=== PATIENT | male | born 1925 | race Asian ===

== ENCOUNTER 2016-09-10 09:59 | Inpatient (IN) | payer MEDICARE, BC, OTHER ==
[~2016-09-10] VITALS: Ht 170.2 cm; Wt 58.0 kg
[2016-09-10] MEDS ORDERED: SODIUM CHLORIDE 0.9% 1L BAG IV* STA (10:18)
[2016-09-10 10:52] LABS: ADD SCAN DIFF NO
[2016-09-10 11:03] LABS: ABNORMAL IP MESSAGE 1; HEMATOCRIT 28.9 % (42.0-52.0); HEMOGLOBIN 8.7 g/dl (14.0-18.0); MEAN CORPUSCULAR HEMOGLOBIN 24.3 pg (29.0-33.0); MEAN CORPUSCULAR HGB CONC 30.1 g/dl (32.0-37.0); MEAN CORPUSCULAR VOLUME 80.7 fl (82.0-101.0); MEAN PLATELET VOLUME 10.4 fl (7.4-10.4); PLATELET COUNT 336 10^3/UL (140-415); RED BLOOD COUNT 3.58 10^6/ul (4.70-6.10); RED CELL DISTRIBUTION WIDTH 21.3 % (11.5-14.5); WHITE BLOOD COUNT 6.4 10^3/ul (4.8-10.8)
--- NOTE | 2016-09-10 11:08 | RADRPT ---
PROCEDURE: Chest x-ray CLINICAL INDICATION: Shortness of breath TECHNIQUE: Chest single view COMPARISON: 04/16/2009 FINDINGS: The heart is normal in size. The pulmonary vessels are normal in caliber. There is stable atherosc lerotic aortic calcification. There is interval development of moderate bilateral pleural effusions with associated lower lobe compressive atelectasis and volume loss. A 8 mm right upper lung nodule is identified. The bones diffusely osteopenic IMPRESSION: 1. Interval development of moderate size bilateral pleural effusions with associated lower lobe com pressive atelectasis and volume loss. 2. 8 mm right upper lung nodule RPTAT: HH .Dameon Mcclain MD, MD Date Time Electronically viewed and signed by .Dameon Mcclain MD, on 09/10/2016 11:07 .W/
[2016-09-10] MEDS ORDERED: TIOT18CA INHALATION (11:09)
[2016-09-10] MEDS ORDERED: MULT-761 PO (11:10)
[2016-09-10 11:27] LABS: INR 1.28; PROTIME 16.1 Sec (12.2-14.2); PT RATIO 1.3
[2016-09-10 11:36] LABS: ADD UMIC YES; URINE BILIRUBIN (Dip) NEGATIVE (NEGATIVE); URINE BLOOD (Dip) TRACE (NEGATIVE); URINE COLOR LT. YELLOW (YELLOW); URINE GLUCOSE (Dip) NEGATIVE (NEGATIVE); URINE KETONES (Dip) NEGATIVE (NEGATIVE); URINE LEUKOCYTE ESTERASE (Dip) NEGATIVE (NEGATIVE); URINE NITRITE (Dip) NEGATIVE (NEGATIVE); URINE TOTAL PROTEIN (Dip) NEGATIVE (NEGATIVE); URINE UROBILINOGEN (Dip) 0.2 E.U./dL (0.1-1.0)
[2016-09-10 11:57] LABS: BACTERIA,URINE FEW
[2016-09-10 12:12] LABS: ALBUMIN 2.6 g/dl (3.3-4.9); CHLORIDE 107 mmol/L (97-110)
[2016-09-10 12:13] LABS: POTASSIUM 5.2 mmol/L (3.5-5.1); SODIUM 144 mmol/L (135-144)
[2016-09-10 12:15] LABS: ALBUMIN/GLOBULIN RATIO 0.55; ANION GAP 19 (8-16); BILIRUBIN,INDIRECT 0.6 mg/dl (0-1.1); BILIRUBIN,TOTAL 0.6 mg/dl (0.2-1.3); CARBON DIOXIDE 23 mmol/L (21-31); CREATININE 2.09 mg/dl (0.61-1.24); TOTAL PROTEIN 7.3 g/dl (6.1-8.1)
[2016-09-10 12:16] LABS: ALANINE AMINOTRANSFERASE 42 IU/L (13-69); ALKALINE PHOSPHATASE 178 IU/L (42-121); ASPARTATE AMINO TRANSFERASE 86 IU/L (15-46); BLOOD UREA NITROGEN 91 mg/dl (7-20); CALCIUM 8.8 mg/dl (8.4-10.2)
[2016-09-10 12:18] LABS: GLUCOSE 47 mg/dl (70-220)
[2016-09-10 12:28] LABS: TROPONIN-I < 0.012 ng/ml (0.00-0.12)
[2016-09-10] MEDS ORDERED: DEXTROSE 50% 50 ML SYRINGE IV ONE (12:30)
[2016-09-10] MEDS ORDERED: SOD CHLORIDE 0.9% 1,000 ML IV SCH (12:39)
--- NOTE | 2016-09-10 12:45 | ERA ---
ER Documentation Chief Complaint Date/Time DATE: 09/10/16 TIME: 12:40 Chief Complaint pt bib family with c/o decresed intake, diarrhea, and sob with hx COPD HPI This is a 89-year-old male who presents to the emergency room for evaluation of generalized weakness, decreased feeding over the past 3 days, and mild shortness of breath. This patient does have a history of metastatic colon carcinoma. The patient is unable to give a history secondary to his clinical condition, and language barrier. According to his son who was at bedside this patient has had decreased activity over the past 2 days. He does have a history of hospitalization in the past for pneumonia which caused similar symptoms. ROS All systems reviewed and are negative except as per history of present illness. Medications Home Meds Reported Medications Multivitamin (MULTI VITAMIN DAILY) 1 Each Tablet, 1 TAB PO DAILY, TAB 09/10/16 Tiotropium [place]* (Spiriva*) 18 Mcg Cap.w.dev, 1 CAP INHALATION DAILY Y for SHORTNESS OF BREATH, #30 CAP 09/10/16 Allergies Allergies: Coded Allergies: No Known Drug Allergy (Verified Allergy, Intermediate, 09/10/16) Physical Exam Vitals Vital Signs Date Time Temp Pulse Resp B/P Pulse Ox O2 Delivery O2 Flow Rate FiO2 09/10/16 12:14 Nasal Cannula 2 09/10/16 11:23 Simple Mask 5 09/10/16 10:51 94.9 68 22 134/67 100 09/10/16 10:00 96.9 74 28 115/72 96 Physical Exam INITIAL VITAL SIGNS: Reviewed by me GENERAL: The patient is cachectic appearing gentleman, mild respiratory distress, temporal wasting HEENT: Dry mucous membranes pupils equal, round, and reactive to light. EOMI. There is no scleral icterus. NECK: C-spine is soft and supple, there is no meningismus. There is no cervical lymphadenopathy. LUNGS: Decreased breath sounds with coarse rhonchi auscultated in the upper and lower lobes HEART: Regular rate and rhythm, no murmurs, clicks, rubs or gallops. ABDOMEN: Soft, non-tender, non-distended. There are bowel sounds in all four quadrants. No rebound or guarding. EXTREMITIES: There is no peripheral cyanosis or edema. No focal swelling or erythema. NEUROLOGICAL: The patient moves all four extremities with 5/5 strength. Cranial nerves II - XII are intact. Normal gait. Alert and oriented SKIN: Pale appearing, there is no apparent rash or petechiae. Rectal exam: Brown stool, heme positive HEME/LYMPHATIC: There is no evidence of excessive bruising or lymphedema. PSYCHIATRIC: The patient does not appear anxious or depressed. Result Diagram: 09/10/16 1042 09/10/16 1042 Results 24 hrs Laboratory Tests Test 09/10/16 10:30 09/10/16 10:42 09/10/16 11:06 Lactic Acid Level 1.5mmol/L White Blood Count 6.410^3/ul Red Blood Count 3.5810^6/ul Hemoglobin 8.7g/dl Hematocrit 28.9% Mean Corpuscular Volume 80.7fl Mean Corpuscular Hemoglobin 24.3pg Mean Corpuscular Hemoglobin Concent 30.1g/dl Red Cell Distribution Width 21.3% Platelet Count 08945^3/UL Mean Platelet Volume 10.4fl Neutrophils % % Eosinophils % % Neutrophils # 10^3/ul Eosinophils # 10^3/ul Prothrombin Time 16.1Sec Prothrombin Time Ratio 1.3 INR International Normalized Ratio 1.28 Activated Partial Thromboplast Time 33.0Sec Sodium Level 144mmol/L Potassium Level 5.2mmol/L Chloride Level 107mmol/L Carbon Dioxide Level 23mmol/L Anion Gap 19 Blood Urea Nitrogen 91mg/dl Creatinine 2.09mg/dl Glucose Level 47mg/dl Calcium Level 8.8mg/dl Total Bilirubin 0.6mg/dl Direct Bilirubin 0.00mg/dl Indirect Bilirubin 0.6mg/dl Aspartate Amino Transf (AST/SGOT) 86IU/L Alanine Aminotransferase (ALT/SGPT) 42IU/L Alkaline Phosphatase 178IU/L Troponin I < 0.012ng/ml Total Protein 7.3g/dl Albumin 2.6g/dl Globulin 4.70g/dl Albumin/Globulin Ratio 0.55 Urine Color LT. YELLOW Urine Clarity CLEAR Urine pH 5.0 Urine Specific [place] 1.020 Urine Ketones NEGATIVE Urine Nitrite NEGATIVE Urine Bilirubin NEGATIVE Urine Urobilinogen 0.2 E.U./dL Urine Leukocyte Esterase NEGATIVE Urine Microscopic RBC 2-5/HPF Urine Microscopic WBC NONE SEEN/HPF Urine Epithelial Cells FEW Urine Amorphous Urates MANY Urine Bacteria FEW Urine Hemoglobin TRACE Urine Glucose NEGATIVE% Urine Total Protein NEGATIVE Current Medications Medications (Trade) Dose Ordered Sig/Abelardo Route PRN Reason Start Time Stop Time Status Last Admin Dose Admin Sodium Chloride (NS) 1,640 ml BOLUS OVER 2 HOURS STAT IV* 09/10/16 10:18 09/10/16 10:19 DC 09/10/16 10:51 Dextrose (D50w Syringe) 50 ml ONCE ONCE IV 09/10/16 12:30 09/10/16 12:31 DC 09/10/16 12:32 Procedures/MDM EKG: Rate/Rhythm: Right bundle branch block QRS, ST, T-waves: [No changes consistent w/ acute ischemia] Impression: [No evidence of ischemia or arrhythmia] Chest X-ray 1V Interpreted by me: Soft Tissue: Bilateral pleural effusions Bones: No acute abnormalities Mediastinum/Cardiac Silhouette/Lungs: [No acute abnormalities] This 89-year-old male presents to the emergency room for evaluation of generalized fatigue. When I evaluated this patient I did note that he was an elderly gentleman in who was pale, cachectic appearing, and had mild respiratory distress. This patient's pulse oxygen level on room air was 86%. He does have a history of COPD, however given his clinical appearance I did obtain a septic workup. This patient was found to have bilateral pleural effusions, and a low hemoglobin. His previous hemoglobin was greater than 14. I did a rectal exam and he does have brown stool which is heme positive on my examination. This patient's lab work also shows acute renal failure, and hypoglycemia with a blood sugar of 47. This patient was given 1 amp of dextrose in the emergency room. He was given 1 L of fluids, and will be transfused 1 unit of packed red blood cells. I have contacted his primary care physician, and spoke to Dr. Alexandre who is covering. This patient will be placing at this time on a telemetry floor. This patient was placed on 2 L nasal cannula and states that he is feeling slightly better. Critical Care: Excluding all billable procedures Time: 38 minutes Treatments/Evaluations: Close monitoring and treatment of unstable vital signs, cardiorespiratory, and neurologic status, while maintaining tight balance of fluid, respiratory, and cardiac interventions. Departure Diagnosis: Primary Impression: Acute and chronic respiratory failure with hypoxia Additional Impressions: GI bleed Bilateral pleural effusion Hypoglycemia Acute renal failure Microcytic anemia Hypoalbuminemia Acute prerenal azotemia Condition: Serious YURIY WOOD DO Sep 10, 2016 12:45
[2016-09-10] MEDS ORDERED: ACETAMINOPHEN 325 MG TAB PO PRN ×2 (13:00→23:30)
[2016-09-10] MEDS ORDERED: ONDANSETRON 4 MG INJ IV PRN (13:00)
[2016-09-10] MEDS ORDERED: SOD CHLORIDE 0.9% 250 ML IV ONE (13:04)
[2016-09-10 13:22] LABS: NEUTROPHIL # 5.2 10^3/ul (1.6-7.5)
[2016-09-10 13:33] LABS: Allen Test ACCEPTAB; Arterial COHb 0.8 % (0.0-3.0); Arterial Fraction of Oxyhgb 98.3 % (93.0-99.0); Arterial HCO3 24.2 mmol/L (22.0-26.0); Arterial MetHb 0.5 % (0.0-1.5); Arterial Total Hemglobin 9.1 g/dl (12.0-18.0); MODE MASK - SIMPLE
[2016-09-10 17:45] VITALS: TEMP 97.7
[2016-09-10 20:00] VITALS: BP 137/61; RESP 16
[2016-09-10 20:03] VITALS: PULSE 75
[2016-09-10 21:25] VITALS: Ht 170.2 cm; Wt 58.0 kg
[2016-09-10] MEDS ORDERED: MAGNESIUM HYDROXIDE 30ML CUP PO PRN (23:30)
[2016-09-10] MEDS ORDERED: ZOLPIDEM 5 MG TAB PO PRN (23:30)
[2016-09-11] VITALS (12 sets, daily range): BP systolic 95–152; BP diastolic 50–79; PULSE 68–90; RESP 16–20
--- NOTE | 2016-09-11 06:02 | PN ---
DATE: SUBJECTIVE: The patient is unresponsive, but he is awake. He appears extremely emaciated. His son states that for the past 4 days he has not been eating, seemed to have some diarrhea and was extrem clari weak. The patient has a history of carcinoma of the colon and was extremely anemic upon admissi on. He has already received 1 unit of blood, so I gave him another unit of blood and called in a tx stroenterologist for consultation. PHYSICAL EXAMINATION: CHEST: Clear to A and P. HEART: Normal sinus rhythm with occasional extrasystole. ABDOMEN: Liver, kidneys, spleen are not palpable. Bowel sounds are normal. There are no intraabdo daniela masses or bruits present. EXTREMITIES: No ankle edema. VITAL SIGNS: The patient is afebrile, blood pressure is 137/61, pulse is 75 per minute, respiration s 28 per minute. LABORATORY DATA: White blood cell count 6,400, hemoglobin 8.7 grams percent, hematocrit 28.9%, plat elet count was normal. Arterial blood gas: pH 7.263, pCO2 54.7, pO2 250.9, base excess -3.0, FIO2 4 0. INR 1.28. Electrolytes: Sodium 144, potassium 5.2, chloride 107, carbon dioxide 23, BUN 91, cre atinine 2.09. Glucose is 47, calcium is 8.8, AST is elevated at 86, alkaline phosphatase is elevate d at 178. Troponin I level is normal at less than 0.012. Albumin is low at 2.6, globulin is high a t 4.7, albumin globulin ratio is abnormal at 0.55. Lactic acid is 0.9. Urine is normal. IMAGING: Chest x-ray shows interval development of moderate sized bilateral pleural effusions, with associated lower lobe compressive atelectasis and volume loss, an 8- mm right upper lung nodule. EK G reveals normal sinus rhythm with a right bundle branch block. Gastroenterology to see patient in consultation. Dictated By: DIAMOND STUART/MAYCO Conf#: [id number] DID#: [id number]
[2016-09-11] MEDS ORDERED: DEXTROSE 50% 50 ML SYRINGE ONE (06:27)
[2016-09-11] MEDS ORDERED: GLUCAGON 1 MG INJ IM PRN (06:30)
[2016-09-11] MEDS ORDERED: GLUCOSE GEL 15 GRAM TUBE PO PRN ×2 (06:30)
[2016-09-11] MEDS ORDERED: DEXTROSE 50% 50 ML SYRINGE IV PRN ×2 (06:30)
[2016-09-11] MEDS ORDERED: GLUCOSE GEL 15 GRAM TUBE BUCCAL PRN (06:30)
[2016-09-11] MEDS ORDERED: BARIUM SULF 2% 450 ML BTL (BERRY SMOOTHIE) PO ONE (08:30)
[2016-09-11 08:59] LABS: ADD SCAN DIFF NO
[2016-09-11] MEDS ORDERED: FUROSEMIDE 20 MG INJ IV SCH (09:00)
[2016-09-11 09:02] LABS: ABNORMAL IP MESSAGE 1; HEMATOCRIT 32.6 % (42.0-52.0); HEMOGLOBIN 10.1 g/dl (14.0-18.0); MEAN CORPUSCULAR HEMOGLOBIN 25.9 pg (29.0-33.0); MEAN CORPUSCULAR VOLUME 83.6 fl (82.0-101.0); MEAN PLATELET VOLUME 10.2 fl (7.4-10.4); PLATELET COUNT 279 10^3/UL (140-415); WHITE BLOOD COUNT 7.1 10^3/ul (4.8-10.8)
[2016-09-11 09:18] LABS: CHOL/HDL RATIO 7.4 RATIO; CHOLESTEROL 269 mg/dl (100-200); HDL CHOLESTEROL 36 mg/dl (31-75); TRIGLYCERIDES 88 mg/dl (0-149)
[2016-09-11 09:24] LABS: B-TYPE NATRIURETIC PEPTIDE 7180 PG/ML (0-450)
[2016-09-11 09:56] LABS: TOTAL IRON BINDING CAPACITY 242 ug/dl (241-421)
[2016-09-11 10:07] LABS: IRON 62 ug/dl (35-150)
[2016-09-11 10:28] LABS: FOLATE > 20.0 ng/ml (2.8-20.0)
[2016-09-11] MEDS ORDERED: morphine 2 MG INJ IV PRN (10:30)
[2016-09-11 10:35] LABS: LYMPHOCYTES # 0.3 10^3/ul (0.8-2.9); MONOCYTE # 0.4 10^3/ul (0.3-0.9); NEUTROPHIL # 5.7 10^3/ul (1.6-7.5)
[2016-09-11 10:36] LABS: ANISOCYTOSIS 1+; HYPOCHROMASIA 1+; TARGET CELLS OCCASIONAL
[2016-09-11 10:37] LABS: POIKILOCYTOSIS 1+
[2016-09-11 10:38] LABS: BURR CELLS OCCASIONAL; POLYCHROMASIA 1+
--- NOTE | 2016-09-11 10:39 | PN ---
DATE: 09/11/2016 SUBJECTIVE: Follow up on generalized weakness, acute kidney injury, metastatic colon cancer. The p atient continues to remain weak and frail, does have intermittent chest congestion. The patient is extremely cachectic with severe temporal muscle wasting. No reported fever or chills. No reported rectal bleed. The patient does have edema in both lower extremities; however, is overall emaciated. No reported vomiting. The patient does have mild abdominal pain. PHYSICAL EXAMINATION: GENERAL: The patient to be conscious, awake, alert, follows simple commands. VITAL SIGNS: Temperature 96.3, pulse 68, respirations 18, blood pressure 150/____, O2 saturation 98 % on 2 liters. HEENT: Atraumatic, normocephalic. Conjunctivae and lids normal. Oropharynx revealed dry oral muco sa. Nose and ears normal. NECK: No mass, no JVD. CHEST: Revealed diminished air entry at the bases. No use of accessory muscles. CARDIOVASCULAR: S1, S2 normal. No murmur. ABDOMEN: Soft, mildly distended, mildly tender. EXTREMITIES: Edematous. No clubbing, no cyanosis. NEUROLOGIC: The patient is awake, alert, frail, cachectic with generalized weakness. No gross foca l deficit. LABORATORY DATA: Labs done this morning WBC 7.1, hemoglobin 10.1, platelet 279. Chemistry: Sodium 144, potassium 5.2, BUN 91, creatinine 2. Initial glucose was 47, albumin is 2.6, alkaline phospha tase 178. IMPRESSION: 1. Anemia. 2. Generalized weakness. 3. Metastatic colon cancer. 4. Chronic obstructive pulmonary disease. 5. Pleural effusion. 6. Hypoalbuminemia due to malnutrition, moderate. PLAN: The patient will be started on IV fluid and urinalysis is pending. The patient will have fol lowup CBC. The patient received a couple of units of PRBCs. Initially he presented with hemoglobin of 8.7. I will also start him on DuoNeb with history of COPD in the past. The patient has remote history of smoking. Will hold off on CT scan of the abdomen. I spoke with patient's son, he report ed that in end of last year the patient has had extensive workup, including ultrasound and CT scan a nd possible MRI at [facility]. Will obtain records. I explained that the patient's condition is p oor and goals of treatment should be discussed with PMD. I spoke with Dr. Melendez for obtaining GI consult. Further recommendations will depend on patient's hospital course. Overall prognosis is p oor. The patient's son was explained. Dictated By: STARR SAEED/MAYCO Conf#: [id number] DID#: [id number]
[2016-09-11] MEDS: DEXTROSE 5%-0.45% NACL 1,000 ML IV SCH (10:49)
[2016-09-11] MEDS: ALBUTEROL/IPRATROPIUM (NEB) 3 ML AMP HHN SCH ×3 (11:44→19:40)
--- NOTE | 2016-09-11 11:59 | RADRPT ---
PROCEDURE: XR Chest. CLINICAL INDICATION: Shortness of breath. TECHNIQUE: Single frontal view. COMPARISON: 09/10/2016. FINDINGS: There is atelectasis bilaterally in the mid and lower lung zones, unchanged. The lungs are otherwis e clear. The heart size is normal. There are moderate bilateral pleural effusions, unchanged. There is no pneumothorax. IMPRESSION: 1. No change from 09/10/2016. RPTAT: QQ .Janak Barrera MD, MD Date Time Electronically viewed and signed by .Janak Barrera MD, MD on 09/11/2016 11:58 .R/
--- NOTE | 2016-09-11 16:29 | RADRPT ---
PROCEDURE: XR Chest. CLINICAL INDICATION: Check nasogastric tube position. TECHNIQUE: Single frontal view. COMPARISON: 09/11/2016. 0823 hours. FINDINGS: The nasogastric tube tip is in the stomach. The heart size is normal. There are moderate bilateral pleural effusions and there is atelectasis bilaterally in the mid and l ower lung zones, unchanged. The lungs are otherwise clear. There is no pneumothorax. IMPRESSION: 1. Satisfactory position of nasogastric tube. 2. No other change from the prior study done earlier the same day. RPTAT: QQ .Janak Barrera MD, MD Date Time Electronically viewed and signed by .Janak Barrera MD, on 09/11/2016 16:29 .R/
[2016-09-11] MEDS ORDERED: ALBUTEROL/IPRATROPIUM (NEB) 3 ML AMP HHN PRN (20:00)
[2016-09-12] VITALS (12 sets, daily range): BP systolic 96–160; BP diastolic 53–68; PULSE 72–84; RESP 16–20
[2016-09-12] MEDS: ACCU-CHEK XX SCH ×6 (01:26→18:45)
[2016-09-12] MEDS: ALBUTEROL/IPRATROPIUM (NEB) 3 ML AMP HHN SCH ×4 (01:45→20:50)
[2016-09-12 07:37] LABS: ADD SCAN DIFF NO
[2016-09-12 07:44] LABS: ABNORMAL IP MESSAGE 1; HEMATOCRIT 31.5 % (42.0-52.0); HEMOGLOBIN 10.1 g/dl (14.0-18.0); MEAN CORPUSCULAR HEMOGLOBIN 26.6 pg (29.0-33.0); MEAN CORPUSCULAR HGB CONC 32.1 g/dl (32.0-37.0); MEAN CORPUSCULAR VOLUME 83.1 fl (82.0-101.0); MEAN PLATELET VOLUME 10.4 fl (7.4-10.4); PLATELET COUNT 222 10^3/UL (140-415); RED BLOOD COUNT 3.79 10^6/ul (4.70-6.10); RED CELL DISTRIBUTION WIDTH 21.3 % (11.5-14.5)
[2016-09-12 07:55] LABS: CALCIUM 7.8 mg/dl (8.4-10.2); CREATININE 2.35 mg/dl (0.61-1.24)
[2016-09-12] MEDS: DEXTROSE 5%-0.45% NACL 1,000 ML IV SCH ×2 (09:19→22:39)
--- NOTE | 2016-09-12 10:04 | RADRPT ---
PROCEDURE: Retroperitoneal US. CLINICAL INDICATION: Renal insufficiency, anuria TECHNIQUE: Multiple sonographic images of the kidneys and retroperitoneum were obtained. The imag es were reviewed on a PACS workstation. COMPARISON: No prior studies are available for comparison. FINDINGS: The right kidney measures 8.7 cm. The left kidney measures 7.9 cm. There is increased echogenicity of the kidneys. There is no evidence of hydronephrosis. The urinary bladder is normal. There is a moderate amount of ascites. IMPRESSION: Small echogenic kidneys, consistent with medical renal disease. No evidence of hydronephrosis. Moderate amount of ascites. RPTAT: AA .Jason Gibson MD, MD Date Time Electronically viewed and signed by .Jason Gibson MD, on 09/12/2016 10:04 .S/
[2016-09-12 11:03] LABS: LYMPHOCYTES # 0.1 10^3/ul (0.8-2.9); MONOCYTE # 0.2 10^3/ul (0.3-0.9); MYELOCYTES # 0.2
[2016-09-12] MEDS ORDERED: VITAMIN A & D 5 GM OINT PACKET TOP ONE (11:08)
[2016-09-12] MEDS: MOXIFLOXACIN 0.5% 3 ML OPH BOTH EYES SCH ×2 (13:28→21:26)
--- NOTE | 2016-09-12 13:37 | CONS ---
Date/Time of Note Date/Time of Note DATE: 09/12/16 TIME: 13:27 Consultation Date/Type/Reason Admit Date/Time Sep 10, 2016 at 12:40 Type of Consultation: ge Reason for Consultation anemia pt has known metastatic colon ca and chemo was discontinued recentlyguiac + stool but no overt bleeding, no c/o pain pt recenly pulled his NG tube and has had no pos since asked to see him regastding potential g tube and bleeding Constitutional: disoriented, no complaints ENT: no complaints Respiratory: no complaints Cardiovascular: no complaints, No chest pain Gastrointestinal: No diarrhea, No flatus, No pain Social History Smoking Status: Former smoker Exam/Review of Systems Vital Signs Vitals Vital Signs Date Time Temp Pulse Resp B/P Pulse Ox O2 Delivery O2 Flow Rate FiO2 09/12/16 12:00 72 09/12/16 11:40 19 110/54 94 09/12/16 09:00 Nasal Cannula 2.0 09/12/16 07:42 97.6 Intake and Output 09/11/16 09/11/16 09/12/16 15:00 23:00 07:00 Intake Total 1010 ml 900 ml Balance 1010 ml 900 ml Results Result Diagram: 09/12/16 0650 09/12/16 0650 Results 24 hrs Laboratory Tests Test 09/11/16 16:59 09/11/16 21:59 09/12/16 01:22 09/12/16 05:33 Bedside Glucose 120 99 110 107 Test 09/12/16 06:50 09/12/16 09:26 White Blood Count 7.0 Red Blood Count 3.79 L Hemoglobin 10.1 L Hematocrit 31.5 L Mean Corpuscular Volume 83.1 Mean Corpuscular Hemoglobin 26.6 L Mean Corpuscular Hemoglobin Concent 32.1 Red Cell Distribution Width 21.3 H Platelet Count 222 # Mean Platelet Volume 10.4 Neutrophils % 85.0 H Band Neutrophils % 7.0 H Lymphocytes % 2.0 L Monocytes % 3.0 Eosinophils % Myelocytes % 3.0 H Neutrophils # 6.0 Lymphocytes # 0.1 L Monocytes # 0.2 L Eosinophils # Myelocytes # 0.2 Differential Comment MANUAL DIFF Giant Platelets OCCASIONAL Sodium Level 142 Potassium Level 5.0 Chloride Level 112 H Carbon Dioxide Level 23 Anion Gap 12 # Blood Urea Nitrogen 92 H Creatinine 2.35 H Glucose Level 149 # Calcium Level 7.8 L Bedside Glucose 98 Medications Medications Current Medications Zolpidem Tartrate (Ambien) 5 mg HS PRN PO INSOMNIA; Start 09/10/16 at 23:30 Magnesium Hydroxide (Milk Of Mag) 30 ml DAILY PRN PO CONSTIPATION; Start at 23:30 Acetaminophen (Tylenol Tab) 650 mg Q4H PRN PO PAIN AND OR ELEVATED TEMP; Start 09/10/16 at 23:30 Miscellaneous Information 1 ea NOTE XX ; Start 09/11/16 at 06:30 Glucose (Glutose) 15 gm Q15M PRN PO DECREASED GLUCOSE; Start 09/11/16 at 06:30 Glucose (Glutose) 22.5 gm Q15M PRN PO DECREASED GLUCOSE; Start 09/11/16 at 06:30 Dextrose (D50w Syringe) 25 ml Q15M PRN IV DECREASED GLUCOSE; Start 09/11/16 at 06:30 Dextrose (D50w Syringe) 50 ml Q15M PRN IV DECREASED GLUCOSE Last administered on 09/11/16 06:30; Admin Dose 50 ML; Start 09/11/16 at 06:30 Glucagon (Glucagen) 1 mg Q15M PRN IM DECREASED GLUCOSE; Start 09/11/16 at 06:30 Glucose 15 gm 15 gm Q15M PRN BUCCAL DECREASED GLUCOSE; Start 09/11/16 at 06:30 Dextrose/Sodium Chloride (D5-1/2ns) 1,000 ml @ 75 mls/hr [id number] IV Last administered on 09/11/16 10:49; Admin Dose 100 MLS/HR; Start 09/11/16 at 10:00 Morphine Sulfate (morphine) 2 mg Q4H PRN IV PAIN LEVEL 7-10; Start 09/11/16 at 10:30 Diagnostic Test (Pha) (Accu-Chek) 1 ea Q4 XX Last administered on 09/12/16 13: 19; Admin Dose 1 EA; Start 09/12/16 at 01:00 Moxifloxacin HCl (Vigamox) 1 drop TID BOTH EYES ; Start 09/12/16 at 13:00; Stop 09/19/16 at 14:00 ESTEFANY RAMÍREZ MD Sep 12, 2016 13:36
--- NOTE | 2016-09-12 18:25 | CONS ---
DATE OF ADMISSION: 09/10/2016 DATE OF CONSULTATION: 09/12/2016 The patient is an unfortunate 89-year-old gentleman who is attended currently by his daughter and so n who are the bedside. The patient apparently had a nodule in the shoulder that was biopsied and sh own to be metastatic tumor. Scans revealed a mass in the transverse colon and he has been on Xeloda ever since, administered by a doctor at [facility]. The patient initially responded well, but the doct or advised discontinuing the chemotherapy. He recommended essentially hospice type care or more agg ressive chemotherapy depending on the family's choice. The patient denies any hematemesis, coffee-g round emesis, melena, hematochezia. He has been gradually losing weight and p.o. intake became none xistent. An NG tube was placed; however, before the patient had any significant nourishment, he pul led his NG tube. The family is not clear what more they want, how they want to proceed. PHYSICAL EXAMINATION: GENERAL: Showed a wasted male. HEENT: Head, bitemporal wasting. Eyes: His sclerae white. Conjunctivae are pink. NECK: Supple, no thyroid enlargement, no masses. CHEST: Symmetrical. Clear to P and A. CARDIOVASCULAR: Regular rhythm. ABDOMEN: Soft. There is a mass in the mid epigastrium, slightly to the left of epigastrium. There is no organ enlargement or palpable masses. RECTAL: Was deferred. IMPRESSION: 1. Marked Cachexia. 2. Need for nutritional access. PLAN: I had a long discussion with family, the son and one of his daughters who did not know for chris re which way to proceed. My advice was to follow the patient's feelings and if felt that he wanted to keep going, I think aggressively I would place an NG tube and make sure nutritionally he is okay; however, the patient did not express the need for further medical care and in fact bulbous NG tube my advice is to give him supportive care, feed him, give him ice chips, and if he wants some food, g jeniffer him whatever you think he can tolerate, but not to be very aggressive. I have given my advice and let us see if they want a G-tube, I will be happy to place one, although my advice is not to be aggressive now and just hospice type care and let nature take its course. Dictated By: ESTEFANY RAMÍREZ MD MS/NTS Conf#: [id number] DID#: [id number] CC: DIAMOND BOOKER MD; STARR PATRICK MD;*EndCC*
[2016-09-13] VITALS (12 sets, daily range): BP systolic 95–127; BP diastolic 45–55; PULSE 67–75; RESP 16–20
[2016-09-13] MEDS: ACCU-CHEK XX SCH ×4 (00:41→18:33)
[2016-09-13] MEDS: DEXTROSE 5%-0.45% NACL 1,000 ML IV SCH ×3 (00:42→14:10)
[2016-09-13] MEDS: ALBUTEROL/IPRATROPIUM (NEB) 3 ML AMP HHN SCH ×4 (02:38→19:46)
--- NOTE | 2016-09-13 03:16 | PN ---
DATE: 09/12/2016 SUBJECTIVE: Follow up on metastatic colon cancer, acute kidney injury versus acute on chronic kidne y disease, dysphagia, pleural effusion. The patient continues to do poorly. The patient was seen b joselito Melendez and was recommended supportive care versus G-tube placement and is waiting for their reply. The patient did have NG tube placed yesterday since failed swallow eval and was severely mal nourished; however, the patient pulled out NG tube and did not want it back. The patient did not james ve any hematemesis. The patient does have chest congestion and is having difficulty maintaining his secretions. No reported fever or chills. The patient remains awake and responsive. OBJECTIVE: GENERAL: The patient is conscious, awake, alert. VITAL SIGNS: Blood pressure 114/61, temperature 97.6, pulse 71, respirations 20, temperature 99% on 2 liters nasal cannula. HEENT: No eye discharge or redness. Oropharynx is clear. Nose and ears normal externally. NECK: Supple. No mass, no thyromegaly. CHEST: Revealed breath sounds and diminished air entry at bases. CARDIOVASCULAR: Regular rate and rhythm. S1, S2 normal. No murmur. ABDOMEN: Soft. Ascites present. No palpable mass. EXTREMITIES: Edema present. NEUROLOGIC: The patient is awake, alert, follows simple commands, has generalized cachexia. LABORATORY DATA: Done this morning, WBC 7, hemoglobin 10.1, platelets 222. Sodium 142, potassium 5 , BUN 92, creatinine 2.3, and glucose 129. Urine and blood cultures negative. Renal ultrasound rev ealed medical renal disease and ascites. IMPRESSION: 1. Metastatic colon cancer. 2. Chronic kidney disease. 3. Severe malnutrition. 4. Dysphagia. PLAN: We will continue IV fluid, IV Protonix, breathing treatment, and suction as needed. I spoke with the patient's son yesterday about making the patient DNR, and he agreed. Subsequently last nig ht, he told the nurse that he wanted his father to be DNR. I think he is also a good candidate for hospice. We will wait for family's decision regarding G-tube versus comfort care. Meanwhile, emilia nue IV fluids. Dictated By: STARR SAEED/MAYCO Conf#: [id number] DID#: [id number]
[2016-09-13 07:18] LABS: ADD SCAN DIFF NO
[2016-09-13 07:22] LABS: ABNORMAL IP MESSAGE 1; HEMATOCRIT 32.2 % (42.0-52.0); HEMOGLOBIN 9.8 g/dl (14.0-18.0); MEAN CORPUSCULAR HEMOGLOBIN 25.4 pg (29.0-33.0); MEAN CORPUSCULAR HGB CONC 30.4 g/dl (32.0-37.0); MEAN CORPUSCULAR VOLUME 83.4 fl (82.0-101.0); MEAN PLATELET VOLUME 10.5 fl (7.4-10.4); PLATELET COUNT 207 10^3/UL (140-415); RED BLOOD COUNT 3.86 10^6/ul (4.70-6.10); RED CELL DISTRIBUTION WIDTH 21.9 % (11.5-14.5); WHITE BLOOD COUNT 4.6 10^3/ul (4.8-10.8)
[2016-09-13 07:41] LABS: CALCIUM 7.7 mg/dl (8.4-10.2); CREATININE 2.33 mg/dl (0.61-1.24); POTASSIUM 5.1 mmol/L (3.5-5.1)
[2016-09-13] MEDS: MOXIFLOXACIN 0.5% 3 ML OPH BOTH EYES SCH ×3 (09:00→20:51)
[2016-09-13 10:50] LABS: MONOCYTE # 0.3 10^3/ul (0.3-0.9)
[2016-09-13 11:52] LABS: ADD UMIC YES; URINE BILIRUBIN (Dip) NEGATIVE (NEGATIVE); URINE BLOOD (Dip) 3+ (NEGATIVE); URINE COLOR LT. YELLOW (YELLOW); URINE GLUCOSE (Dip) NEGATIVE (NEGATIVE); URINE KETONES (Dip) NEGATIVE (NEGATIVE); URINE LEUKOCYTE ESTERASE (Dip) TRACE (NEGATIVE); URINE NITRITE (Dip) NEGATIVE (NEGATIVE); URINE TOTAL PROTEIN (Dip) NEGATIVE (NEGATIVE); URINE UROBILINOGEN (Dip) 0.2 E.U./dL (0.1-1.0)
[2016-09-13 12:11] LABS: BACTERIA,URINE MODERATE; SQUAMOUS EPITHELIAL CELL,UR MODERATE; URINE RBCS 0-2 /HPF (0)
--- NOTE | 2016-09-13 15:16 | PN ---
DATE: 09/13/2016 SUBJECTIVE: The patient without complaints. OBJECTIVE VITAL SIGNS: Temperature 98.5, blood pressure 127/53, pulse 67, respirations 16 , oxygen saturation 99% on 3 liters. GENERAL: Well-developed, thin female in no acute distress, lying in bed, ill- appearing. SKIN: Scattered ecchymoses, decreased turgor. CHEST: Decreased breath sounds bilateral bases with upper airway secretions. HEART: Regular rate and rhythm. ABDOMEN: Distended, obvious ascites, nontender, decreased bowel sounds. NEUROLOGIC: Alert but non- communicative, otherwise nonfocal. EXTREMITIES: 2+ bilateral lower extremity edema. LABORATORY EXAMINATION: Hematocrit of 32.2, hemoglobin of 9.8, white blood cell count of 4.6, platelets 207. Sodium 141, potassium 5.1, chloride 111, bicarbonate 23, BUN of 92, creatinine 2.33, blood sugar of 160. ASSESSMENT AND PLAN: 1. Metastatic colon cancer/ascites. The patient remains stable, but unable to eat and family currently deciding whether or not to put a G-tube in versus not. Will have palliative care consultation today to discuss further options with the family as the patient has widely spread metastatic disease, failure to thrive, and is unable to eat at this time. 2. Chronic obstructive pulmonary disease. Will continue with oxygen, breathing treatments. 3. Subacute gastrointestinal bleed. This remains stable with no further bleeding or drop in his hematocrit. Will continue to follow. 3. Acute renal failure, slightly worse. Renal ultrasound shows no evidence of any obstruction. We will continue IV fluids and monitor his BUN and creatinine. Dictated By: DEBORAH ARCEO MD, SR/MAYCO Conf#: [id number] DID#: [id number] MTDD
[2016-09-14] VITALS (8 sets, daily range): BP systolic 72–90; BP diastolic 32–50; PULSE 40–66; RESP 18–20
[2016-09-14] MEDS: ALBUTEROL/IPRATROPIUM (NEB) 3 ML AMP HHN SCH ×3 (01:26→13:50)
[2016-09-14] MEDS: DEXTROSE 5%-0.45% NACL 1,000 ML IV SCH (05:12)
[2016-09-14] MEDS: ACCU-CHEK XX SCH ×3 (05:15→11:44)
[2016-09-14 06:56] LABS: ADD SCAN DIFF NO
[2016-09-14 07:01] LABS: ABNORMAL IP MESSAGE 1; HEMATOCRIT 35.1 % (42.0-52.0); HEMOGLOBIN 10.2 g/dl (14.0-18.0); MEAN CORPUSCULAR HEMOGLOBIN 25.2 pg (29.0-33.0); MEAN CORPUSCULAR HGB CONC 29.1 g/dl (32.0-37.0); MEAN CORPUSCULAR VOLUME 86.7 fl (82.0-101.0); PLATELET COUNT 177 10^3/UL (140-415); RED BLOOD COUNT 4.05 10^6/ul (4.70-6.10); RED CELL DISTRIBUTION WIDTH 22.4 % (11.5-14.5)
[2016-09-14 07:29] LABS: ALBUMIN 2.3 g/dl (3.3-4.9); POTASSIUM 4.5 mmol/L (3.5-5.1)
[2016-09-14 07:31] LABS: BILIRUBIN,INDIRECT 0.4 mg/dl (0-1.1); BILIRUBIN,TOTAL 0.4 mg/dl (0.2-1.3)
[2016-09-14 07:32] LABS: ALBUMIN/GLOBULIN RATIO 0.53; CALCIUM 7.6 mg/dl (8.4-10.2); MAGNESIUM 2.1 mg/dl (1.7-2.5); TOTAL PROTEIN 6.6 g/dl (6.1-8.1)
[2016-09-14 07:44] LABS: CREATININE 2.26 mg/dl (0.61-1.24)
[2016-09-14] MEDS: MOXIFLOXACIN 0.5% 3 ML OPH BOTH EYES SCH ×2 (08:46→13:00)
[2016-09-14 10:01] LABS: LYMPHOCYTES # 0.2 10^3/ul (0.8-2.9); MONOCYTE # 0.2 10^3/ul (0.3-0.9); NEUTROPHIL # 2.1 10^3/ul (1.6-7.5)
--- NOTE | 2016-09-14 10:14 | RADRPT ---
Vent Rate: 67 bpm RR Interval: 0 msec [place] Interval: 170 msec QRS Duration: 160 msec QT Interval: 484 msec QTC Interval: 511 msec P-R-T [place]: 105 - 92 - 54 degrees Suspect arm lead reversal, interpretation assumes no reversal Normal sinus rhythm ? Right bundle branch block Abnormal ECG Electronically Signed By: Dandre Ag [id number]
--- NOTE | 2016-09-14 14:21 | PN ---
DATE: 09/14/2016 SUBJECTIVE: Patient noncommunicative. OBJECTIVE: VITAL SIGNS: Temperature 97.7, pulse of 58, respirations 18, some agonal breathing and blood pressu re 72/32, oxygen saturation 99% on 2 liters. GENERAL: Well-developed, cachectic male, mild agonal breathing, lying in bed, appearing comfortable . SKIN: Decreased turgor. No rashes noted. CHEST: Decreased breath sounds bilateral bases, otherwise clear. HEART: Bradycardic, regular. ABDOMEN: Distended, nontender. Decreased bowel sounds. EXTREMITIES: 2+ bilateral lower extremity edema. NEUROLOGIC: Nonfocal. The patient is noncommunicative, does respond to noxious stimuli. LABORATORY DATA: White blood cell count 4.0, hemoglobin 10.2, hematocrit 35.1, platelets 177. ASSESSMENT AND PLAN 1. Metastatic colon cancer, this is terminal. The patient is currently in the process of dying. Th e patient with probable near imminent in the near future and is a candidate for hospice. I sp vidhya with the family regarding patient's diagnosis, prognosis, and the level of care. Family is in a greement with hospice care at this time and keeping the patient here at the hospital and [facility] sures only. Will transition the patient to [facility] hospice and under their care. 2. Chronic obstructive pulmonary disease. The patient remained stable. Continue with oxygen and br eathing treatments if needed. 3. Ascites, stable. No treatment indicated at this time. 4. Acute renal failure, stable and no need to monitor at this point as patient is going to hospice care with no more lab ____ . Dictated By: DEBORAH ARCEO MD, SR/[facility] Conf#: [id number] DID#: [id number]
--- NOTE | 2016-09-14 16:25 | QN ---
Documentation Job number: note Comment I was asked to see and evaluate the patient today on 09/14/2016 at 3:45 AM and pronounced the patient Patient attending and admitting was not present therefore the nurse asked me to pronounce the patient According to chart patient was under care of hospice and his CODE STATUS was DNR Physical examination: General appearance: Cachectic Eyes: Pupils are fixed and nonreactive to light Cardiovascular: No spontaneous heart sounds Lungs: No spontaneous breath sounds Reflex: No response to pain stimuli, no reflex 1 [facility] was contacted No family at the bedside Family was notified Attending and admitting was contacted regarding the summary as per attending CARYN Vergara MD Sep 14, 2016 16:25
--- NOTE | 2016-09-14 18:23 | HP ---
DATE OF ADMISSION: 09/10/2016 LEVEL OF CARE: [facility] DIAGNOSES: Metastatic colon cancer. His comorbidities, chronic obstructive pulmonary disease, pleural effusion , chronic kidney disease versus acute on chronic kidney disease and severe malnutrition. CHIEF COMPLAINT AND HISTORY OF PRESENT ILLNESS: The patient is an 89-year-old gentleman with a his tory of metastatic colon cancer. The patient was seen at [facility] by his oncologist and was chandra gnosed with metastatic colon cancer. The patient was given Xeloda for a few months and subsequently it was discontinued. The patient continues to decline and has become progressively weaker and came to [facility] ER because of generalized weakness and diminished p.o. intake. The patient was noted to have a hemoglobin of 8.7. The patient received 2 units of PRBC ordered by Dr. Alexandre , his PMD. The patient, however, continues to decline and became progressively more short of breath , kidney function remains poor and the patient's family decided to o request hospice evaluation. Th e patient was also seen by Dr. Ballesteros from a palliative care standpoint. REVIEW OF SYSTEMS: The patient was short of even at rest, no reported vomiting, no reported diarrhe a. Patient has bilateral leg edema and also abdominal distension due to ascites. No fever or chill s. FAMILY HISTORY: Noncontributory. SOCIAL HISTORY: The patient used to work as a cook. ALLERGIES: NONE. PHYSICAL EXAMINATION: GENERAL: The patient is lethargic. VITAL SIGNS: This morning: Temperature 97.9, pulse 61, respirations 18, blood pressure 89/50, O2 s aturation 100% on nonrebreather mask. HEENT: Atraumatic, normocephalic. Conjunctivae and lids normal. Oropharynx examination was deferr ed. NECK: Supple. Mild use of accessory muscles. CARDIOVASCULAR: S1, S2 normal. No murmur. ABDOMEN: Soft, distended. EXTREMITIES: Edematous. No clubbing, cyanosis. NEUROLOGIC: The patient is lethargic and has generalized severe cachexia and weakness. LABORATORY DATA: Sodium 142, potassium 4.5, BUN 94, creatinine 2.2, albumin 2.3, AST 82, alkaline phosphatase 162, T 50, WBC 4, hemoglobin 10.2, platelets 177. IMPRESSION: 1. Metastatic colon cancer. 2. Severe malnutrition. 3. Chronic obstructive pulmonary disease. 4. Pleural effusion. PLAN: Patient admitted under [facility] level of care. The patient will be started on IV morphine drip at 1 liter an hour which will be titrated every hour to provide comfort. Will also use atropine drops for secretion. We will continue supplemental oxygen. We will use Zofran for vomiting and breathin g treatment for chest congestion. I recently met with the patient's son and poor prognosis was exp lained to him. I also spoke with [facility] nurse Velazquez regarding plan of care. We will continue to o ptimize comfort care. The patient remains terminally ill and is appropriate for [facility] level of care. Dictated By: STARR SAEED/[facility] Conf#: [id number] DID#: [id number]
--- NOTE | 2016-09-21 05:27 | DES ---
DATE OF ADMISSION: 09/10/2016 DATE OF : 09/14/2016 CAUSE OF : Metastatic colon cancer. OTHER COMORBID CONDITIONS: severe malnutrition, COPD, pleural effusion. REASON FOR ADMISSION: The patient was an 89-year-old gentleman with history of metastatic colon can cer. The patient was seen at [facility] a few months ago and was diagnosed with metastatic colon cancer. The patient was started on Xeloda. However, after a few months it was stopped since the pa tient continued to deteriorate. The patient's family brought him to [facility] on the day of admission due to diminished p.o. intake and shortness of breath. The patient was diagno sed with pleural effusion with anemia and a possible acute kidney injury. Patient's BUN was 94, cre atinine was 2.2. The patient's family decided to make him DNR and subsequently also requested [facility]. The patient was seen by hospice on 09/14/2016. The patient was tachypneic and became prog ressively weaker and also has ascites. The patient was started on morphine drip for respiratory dis tress. The patient subsequently on 09/14/2016 at 1455. The patient's son was notified arelyi ng his admission to [facility]. The patient was seen by Dr. Coronado due to anemia and he also recommended the patient should be on hospice care. Labs done on the day of revealed WBC 4, hemoglobin 10.2, and platelets 177. Sodium was 142, potassium 4.5, BUN 94, creatinine 2.2. The patient also had a chest x-ray done recently which revealed pleural effusion bilaterally and also r enal ultrasound revealed small echogenic kidneys consistent with medical renal disease and moderate amount of ascites. Dictated By: STARR PATRICK MD AB/NTS Conf#: [id number] DID#: [id number] CC: DIAMOND BOOKER MD;*EndCC*
== END 2016-09-14 14:44 | disposition expired | DRG 374 ==
LOC: E/R 09:59 → MS4 12:40
PROC: 30233N1 Transfusion of Nonautologous Red Blood Cells into Peripheral Vein, Percutaneous Approach (ICD-10-PCS; principal; 2016-09-10)
DX: C78.5 Secondary malignant neoplasm of large intestine and rectum (principal); E43 Unspecified severe protein-calorie malnutrition; N17.9 Acute kidney failure, unspecified; J90 Pleural effusion, not elsewhere classified; R18.8 Other ascites; E88.09 Other disorders of plasma-protein metabolism, not elsewhere classified; R64 Cachexia; K92.2 Gastrointestinal hemorrhage, unspecified; C80.1 Malignant (primary) neoplasm, unspecified; J44.9 Chronic obstructive pulmonary disease, unspecified; J98.11 Atelectasis; E16.2 Hypoglycemia, unspecified; R13.10 Dysphagia, unspecified; R60.0 Localized edema; N18.9 Chronic kidney disease, unspecified; D64.9 Anemia, unspecified; D50.9 Iron deficiency anemia, unspecified; Z51.5 Encounter for palliative care; Z68.20 Body mass index [BMI] 20.0-20.9, adult; Z66 Do not resuscitate; Z79.899 Other long term (current) drug therapy
CPT/HCPCS: 36415; 36430; 36600; 71010; 76775; 80048; 80053; 80061; 81001; 81003; 82270; 82607; 82728; 82746; 82803; 82962; 83540; 83605; 83735; 83880; 84443; 84484; 85025; 85610; 85651; 85730; 86850; 86900; 86901; 86920; 87040; 87086; 92526; 92610; 93005; 94640; 94664; 96374; J1940; J7030; J7040; J7042; P9016